=== PATIENT | male | born 1965 | race Caucasian/White ===

== ENCOUNTER 2024-11-16 16:58 | Inpatient (IN) | payer MEDICAID ==
[~2024-11-16] VITALS: Ht 170.2 cm; Wt 52.3 kg
[~2024-11-16 16:58] MED LIST: ASPI-1397 PO; FLO0.4C PO; HYDR-3968 PO; OMEP20CA16 PO; SENN-29 PO; TRAM50TA2 PO
[2024-11-16] MEDS ORDERED: ONDA-103 PO (18:06)
[2024-11-16 18:10] LABS: BASOPHILS % (AUTO) 0.2 % (0-1); EOSINOPHILS % (AUTO) 0.1 % (0-6); HEMOGLOBIN 9.7 g/dl (14.0-17.9); MONOCYTES # (AUTO) 0.4 X10'3 (0-0.9); WHITE BLOOD COUNT 7.7 X10'3 (4.5-11.0)
[2024-11-16 18:12] LABS: HEMATOCRIT 29.5 % (42.0-52.0); LYMPHOCYTES # (AUTO) 0.2 X10'3 (1.1-4.8); MEAN CORPUSCULAR HEMOGLOBIN 27.3 PG (27.0-31.0); MEAN CORPUSCULAR HGB CONC 32.8 g/dL (33.0-36.5); MEAN CORPUSCULAR VOLUME 83.2 FL (78-98); MEAN PLATELET VOLUME 7.5 FL (7.4-10.4); MONOCYTES % (AUTO) 4.8 % (2-12); NEUTROPHILS # (AUTO) 7.1 X10'3 (1.8-7.7); NEUTROPHILS % (AUTO) 91.9 % (42-75); PLATELET COUNT 705 X10'3 (140-440); RED BLOOD COUNT 3.54 X10'6 (4.70-6.10)
[2024-11-16 18:23] LABS: ALANINE AMINOTRANSFERASE 33 U/L (12-78); ALBUMIN 3.2 G/DL (3.4-5.0); ALBUMIN/GLOBULIN RATIO 0.7 (1.1-1.5); ALKALINE PHOSPHATASE 181 IU/L (46-116); ANION GAP 11 (8-16); ASPARTATE AMINO TRANSFERASE 36 U/L (10-37); BILIRUBIN,TOTAL 0.5 MG/DL (0.1-1.0); BLOOD UREA NITROGEN 61 MG/DL (7-18); BUN/CREATININE RATIO 23.1 (10.0-20.0); CALCIUM 9.7 MG/DL (8.5-10.1); CHLORIDE 86 MMOL/L (99-107); CREATININE 2.64 MG/DL (0.60-1.10); GLUCOSE 128 MG/DL (70-104); TOTAL CARBON DIOXIDE 21.9 MMOL/L (24-32); TOTAL PROTEIN 8.1 G/DL (6.4-8.2); eCRCL 22 ML/MIN; eGFR 25 ML/MIN
[2024-11-16 18:26] LABS: SODIUM 119 MMOL/L (135-145)
[2024-11-16 18:27] LABS: POTASSIUM 6.4 MMOL/L (3.5-5.1)
[2024-11-16] MEDS: normal saline 1000ml 1,000 ML IV ONE ×2 (19:03→23:22)
[2024-11-16] MEDS: normal saline 1000ML IV soln IVB ONE (19:04)
[2024-11-16] MEDS ORDERED: calcium gluconate inj. 2 GM in normal saline 100ml IV soln 100 ML IV ONE (19:55)
[2024-11-16 20:15] LABS: PHOSPHORUS 4.9 MG/DL (2.3-4.5)
[2024-11-16] MEDS: CALCIUM GLUC 1gm/50ml NACL,iso 50 ML IV ONE ×2 (22:00→22:15)
[2024-11-16] MEDS: dextrose 50%-water 50ml dispensing syringe IV ONE (22:32)
[2024-11-16] MEDS: insulin regular, human 10 units/0.1 ml syringe SQ ONE (22:42)
[2024-11-16] MEDS: sodium bicarbonate (8.4%) 1 mEq/ml syringe IV ONE (22:45)
[2024-11-16] MEDS ORDERED: HYDROcodone/acetaminophen 5mg/325mg tablet PO PRN (22:55)
[2024-11-16] MEDS ORDERED: potassium Cl 40MEQ/1/2NS 520ml 520 ML IV PRN (22:55)
[2024-11-16] MEDS ORDERED: acetaminophen 325mg tablet PO PRN (22:55)
[2024-11-16] MEDS ORDERED: magnesium sulf-water 4G/100mL 100 ML IV PRN (22:55)
[2024-11-16] MEDS ORDERED: magnesium hydroxide 30ml (MOM) UD suspension PO PRN (22:55)
[2024-11-16] MEDS ORDERED: mag hydrox/Alum hydrox/simeth 30ml oral suspension PO PRN (22:55)
[2024-11-16] MEDS ORDERED: magnesium Cl slow-release 64mg tablet PO PRN (22:55)
[2024-11-16] MEDS ORDERED: potassium Cl 20 mEq SR tablet PO PRN ×2 (22:55)
[2024-11-16] MEDS ORDERED: ondansetron/PF 4mg/2ml inj IV PRN (22:55)
[2024-11-16] MEDS ORDERED: magnesium sulf-water 2g/50mL 50 ML IV PRN (22:55)
[2024-11-16] MEDS ORDERED: morphine 2 MG/ML inj. syringe IV PRN ×2 (22:55)
[2024-11-16 23:09] VITALS: PULSE 112; RESP 18
[2024-11-16] MEDS: albuterol 2.5 MG/3 ML nebule NEB ONE (23:09)
[2024-11-16 23:10] LABS: BILIRUBIN,URINE SMALL (Neg); CLARITY,URINE CLOUDY (Clear); COLOR,URINE AMBER (Yellow); GLUCOSE, URINE NEGATIVE (Neg); KETONES,URINE TRACE mg/dl (Neg); LEUKOCYTE ESTERASE ,URINE MODERATE (Neg); OCCULT BLOOD,URINE LARGE (Neg); PROTEIN,URINE 100 mg/dl (Neg); UROBILINOGEN,URINE 0.2 E.U/dL (0.2-1.0)
[2024-11-16] MEDS: sodium polystyrene sulfonate 15gm/60ml oral suspension PO ONE (23:10)
[2024-11-16 23:24] VITALS: PULSE 111; RESP 14
[2024-11-16 23:33] LABS: OSMOLALITY UA 507.5 MOSM/K (50-1400)
[2024-11-16 23:36] LABS: NITRITES, URINE NEGATIVE (Neg)
[2024-11-16 23:37] LABS: RBC,URINE TNTC /HPF (0-2); SQUAMOUS EPITHELIAL CELL,UR FEW /LPF (FEW); UA COLLECTION TYPE URINAL
[2024-11-16 23:38] LABS: BACTERIA,URINE 2+ /HPF (Neg)
[2024-11-16 23:41] LABS: ALBUMIN 2.8 G/DL (3.4-5.0); ANION GAP 7 (8-16); BLOOD UREA NITROGEN 55 MG/DL (7-18); BUN/CREATININE RATIO 22.7 (10.0-20.0); CHLORIDE 90 MMOL/L (99-107); CREATININE 2.42 MG/DL (0.60-1.10); GLUCOSE 112 MG/DL (70-104); SODIUM 121 MMOL/L (135-145); TOTAL CARBON DIOXIDE 24.5 MMOL/L (24-32); eCRCL 24 ML/MIN; eGFR 27 ML/MIN
[2024-11-16 23:45] LABS: APTT 31 SECONDS (22-32); INR 1.1 INR; PROTHROMBIN TIME 11.4 SECONDS (9.0-12.0)
[2024-11-16 23:57] LABS: CALCIUM 8.8 MG/DL (8.5-10.1)
[2024-11-17] MEDS: heparin, porcine 5000 units/ml vial SQ SCH (00:49)
[2024-11-17] MEDS: normal saline 1000ml 1,000 ML IV SCH (00:51)
[2024-11-17] MEDS: sodium polystyrene sulfonate 15gm/60ml oral suspension PO ONE (00:55)
[2024-11-17] MEDS: CefTRIAXone/D5W-Rocephin 1gm 50 ML IV ONE (03:50)
[2024-11-17] MEDS: HYDROcodone/acetaminophen 10/325mg tab PO PRN (04:16)
[2024-11-17 07:45] LABS: BASOPHILS % (AUTO) 0.5 % (0-1); EOSINOPHILS % (AUTO) 0.3 % (0-6); HEMATOCRIT 25.7 % (42.0-52.0); HEMOGLOBIN 8.6 g/dl (14.0-17.9); LYMPHOCYTES # (AUTO) 0.4 X10'3 (1.1-4.8); LYMPHOCYTES % (AUTO) 7.4 % (21-51); MEAN CORPUSCULAR HEMOGLOBIN 27.9 PG (27.0-31.0); MEAN CORPUSCULAR HGB CONC 33.4 g/dL (33.0-36.5); MEAN CORPUSCULAR VOLUME 83.5 FL (78-98); MEAN PLATELET VOLUME 7.9 FL (7.4-10.4); MONOCYTES # (AUTO) 0.7 X10'3 (0-0.9); MONOCYTES % (AUTO) 11.5 % (2-12); NEUTROPHILS # (AUTO) 4.9 X10'3 (1.8-7.7); NEUTROPHILS % (AUTO) 80.3 % (42-75); PLATELET COUNT 505 X10'3 (140-440); RED BLOOD COUNT 3.07 X10'6 (4.70-6.10); WHITE BLOOD COUNT 6.1 X10'3 (4.5-11.0)
[2024-11-17] MEDS: K and/or MAG REPLACEMENT MC SCH (08:00)
[2024-11-17 08:10] LABS: ALANINE AMINOTRANSFERASE 28 U/L (12-78); ALBUMIN 2.5 G/DL (3.4-5.0); ALBUMIN/GLOBULIN RATIO 0.6 (1.1-1.5); ALKALINE PHOSPHATASE 151 IU/L (46-116); ANION GAP 12 (8-16); ASPARTATE AMINO TRANSFERASE 34 U/L (10-37); BILIRUBIN,TOTAL 0.7 MG/DL (0.1-1.0); BLOOD UREA NITROGEN 45 MG/DL (7-18); BUN/CREATININE RATIO 20.7 (10.0-20.0); CALCIUM 8.5 MG/DL (8.5-10.1); CHLORIDE 91 MMOL/L (99-107); CREATININE 2.17 MG/DL (0.60-1.10); GLUCOSE 79 MG/DL (70-104); POTASSIUM 4.3 MMOL/L (3.5-5.1); SODIUM 123 MMOL/L (135-145); TOTAL CARBON DIOXIDE 19.9 MMOL/L (24-32); TOTAL PROTEIN 6.8 G/DL (6.4-8.2); eCRCL 27 ML/MIN; eGFR 31 ML/MIN
[2024-11-17] MEDS: lactose-reduced food (Ensure Enlive) - 237ml bottle PO SCH (08:45)
[2024-11-17 12:30] VITALS: RESP 15; O2SAT 95
[2024-11-17 13:15] VITALS: BP_SYST 92; BP_SYST 97; BP_DIAS 52; PULSE 108; RESP 14; TEMP 97.5; O2SAT 95
[2024-11-17] MEDS: morphine 2 MG/ML inj. syringe IV STA (16:07)
[2024-11-17] MEDS: normal saline 500ml IV soln 500 ML IV ONE ×2 (17:53→18:03)
[2024-11-17 18:01] VITALS: BP 85/49; PULSE 94; RESP 14; O2SAT 98
[2024-11-17 18:40] VITALS: BP 90/52; PULSE 98; RESP 16; TEMP 97.8; O2SAT 98
[2024-11-17 20:00] VITALS: RESP 18; O2SAT 92
[2024-11-17 22:00] VITALS: BP 88/58; PULSE 103; RESP 18; TEMP 98.4; O2SAT 98
[2024-11-18] VITALS (11 sets, daily range): BP systolic 70–93; BP diastolic 40–62; PULSE 90–101; RESP 12–20; TEMP 97.3–98.1; O2SAT 94–99
[2024-11-18 07:25] LABS: BASOPHILS % (AUTO) 0.7 % (0-1); EOSINOPHILS % (AUTO) 0.8 % (0-6); HEMATOCRIT 23.8 % (42.0-52.0); LYMPHOCYTES # (AUTO) 0.5 X10'3 (1.1-4.8); LYMPHOCYTES % (AUTO) 9.2 % (21-51); MEAN CORPUSCULAR HEMOGLOBIN 28.4 PG (27.0-31.0); MEAN CORPUSCULAR HGB CONC 33.6 g/dL (33.0-36.5); MEAN CORPUSCULAR VOLUME 84.5 FL (78-98); MEAN PLATELET VOLUME 8.1 FL (7.4-10.4); MONOCYTES # (AUTO) 0.5 X10'3 (0-0.9); NEUTROPHILS # (AUTO) 3.9 X10'3 (1.8-7.7); NEUTROPHILS % (AUTO) 78.3 % (42-75); PLATELET COUNT 468 X10'3 (140-440); RED BLOOD COUNT 2.82 X10'6 (4.70-6.10); RED CELL DISTRIBUTION WIDTH 16.9 % (11.5-14.5)
[2024-11-18 08:04] LABS: ALANINE AMINOTRANSFERASE 25 U/L (12-78); ALBUMIN 2.3 G/DL (3.4-5.0); ALBUMIN/GLOBULIN RATIO 0.6 (1.1-1.5); ALKALINE PHOSPHATASE 141 IU/L (46-116); ANION GAP 10 (8-16); ASPARTATE AMINO TRANSFERASE 31 U/L (10-37); BILIRUBIN,TOTAL 0.4 MG/DL (0.1-1.0); BLOOD UREA NITROGEN 32 MG/DL (7-18); BUN/CREATININE RATIO 20.6 (10.0-20.0); CHLORIDE 97 MMOL/L (99-107); CREATININE 1.55 MG/DL (0.60-1.10); GLUCOSE 84 MG/DL (70-104); POTASSIUM 4.3 MMOL/L (3.5-5.1); SODIUM 128 MMOL/L (135-145); TOTAL CARBON DIOXIDE 20.9 MMOL/L (24-32); TOTAL PROTEIN 5.9 G/DL (6.4-8.2); eCRCL 37 ML/MIN; eGFR 46 ML/MIN
[2024-11-18] MEDS: CefTRIAXone/D5W-Rocephin 1gm 50 ML IV SCH (08:29)
[2024-11-18] MEDS: DOPamine 400mg/D5W 250ml 250 ML IV SCH (14:37)
[2024-11-18] MEDS: normal saline 1000ml 1,000 ML IV ONE (20:08)
[2024-11-18] MEDS ORDERED: acetaminophen 325mg tablet PO PRN (20:35)
[2024-11-18] MEDS: nicotine 14mg patch - 24hr TD ONE (23:40)
[2024-11-19] VITALS (11 sets, daily range): BP systolic 77–97; BP diastolic 40–64; PULSE 66–104; RESP 17–24; TEMP 97–98; O2SAT 96–98
[2024-11-19 08:14] LABS: BASOPHILS % (AUTO) 0.3 % (0-1); EOSINOPHILS # (AUTO) 0.1 X10'3 (0-0.9); EOSINOPHILS % (AUTO) 1.7 % (0-6); HEMATOCRIT 23.1 % (42.0-52.0); HEMOGLOBIN 7.7 g/dl (14.0-17.9); LYMPHOCYTES # (AUTO) 0.5 X10'3 (1.1-4.8); LYMPHOCYTES % (AUTO) 7.4 % (21-51); MEAN CORPUSCULAR HEMOGLOBIN 28.5 PG (27.0-31.0); MEAN CORPUSCULAR HGB CONC 33.4 g/dL (33.0-36.5); MEAN CORPUSCULAR VOLUME 85.3 FL (78-98); MEAN PLATELET VOLUME 7.5 FL (7.4-10.4); MONOCYTES # (AUTO) 0.6 X10'3 (0-0.9); MONOCYTES % (AUTO) 10.5 % (2-12); NEUTROPHILS # (AUTO) 4.9 X10'3 (1.8-7.7); NEUTROPHILS % (AUTO) 80.1 % (42-75); PLATELET COUNT 467 X10'3 (140-440); WHITE BLOOD COUNT 6.1 X10'3 (4.5-11.0)
[2024-11-19 08:54] LABS: ALANINE AMINOTRANSFERASE 24 U/L (12-78); ALBUMIN/GLOBULIN RATIO 0.6 (1.1-1.5); ALKALINE PHOSPHATASE 136 IU/L (46-116); ANION GAP 6 (8-16); ASPARTATE AMINO TRANSFERASE 23 U/L (10-37); BILIRUBIN,TOTAL 0.2 MG/DL (0.1-1.0); BLOOD UREA NITROGEN 19 MG/DL (7-18); BUN/CREATININE RATIO 21.1 (10.0-20.0); CALCIUM 7.7 MG/DL (8.5-10.1); CHLORIDE 102 MMOL/L (99-107); GLUCOSE 72 MG/DL (70-104); POTASSIUM 4.6 MMOL/L (3.5-5.1); SODIUM 130 MMOL/L (135-145); TOTAL CARBON DIOXIDE 22.2 MMOL/L (24-32); TOTAL PROTEIN 5.3 G/DL (6.4-8.2); eCRCL 65 ML/MIN; eGFR 86 ML/MIN
[2024-11-20] VITALS (8 sets, daily range): BP systolic 74–99; BP diastolic 44–62; PULSE 64–102; RESP 14–22; TEMP 97–98; O2SAT 93–98
[2024-11-20 06:16] LABS: BASOPHILS % (AUTO) 0.3 % (0-1); EOSINOPHILS # (AUTO) 0.1 X10'3 (0-0.9); EOSINOPHILS % (AUTO) 1.9 % (0-6); HEMATOCRIT 22.8 % (42.0-52.0); HEMOGLOBIN 7.7 g/dl (14.0-17.9); LYMPHOCYTES # (AUTO) 0.4 X10'3 (1.1-4.8); LYMPHOCYTES % (AUTO) 6.8 % (21-51); MEAN CORPUSCULAR HEMOGLOBIN 28.4 PG (27.0-31.0); MEAN CORPUSCULAR HGB CONC 33.7 g/dL (33.0-36.5); MEAN CORPUSCULAR VOLUME 84.3 FL (78-98); MEAN PLATELET VOLUME 6.8 FL (7.4-10.4); MONOCYTES # (AUTO) 0.7 X10'3 (0-0.9); MONOCYTES % (AUTO) 11.1 % (2-12); NEUTROPHILS # (AUTO) 4.8 X10'3 (1.8-7.7); NEUTROPHILS % (AUTO) 79.9 % (42-75); PLATELET COUNT 407 X10'3 (140-440); RED CELL DISTRIBUTION WIDTH 17.3 % (11.5-14.5)
[2024-11-20 06:34] LABS: ALANINE AMINOTRANSFERASE 19 U/L (12-78); ALBUMIN 1.6 G/DL (3.4-5.0); ALBUMIN/GLOBULIN RATIO 0.6 (1.1-1.5); ALKALINE PHOSPHATASE 123 IU/L (46-116); ANION GAP 6 (8-16); ASPARTATE AMINO TRANSFERASE 19 U/L (10-37); BILIRUBIN,TOTAL 0.2 MG/DL (0.1-1.0); BLOOD UREA NITROGEN 12 MG/DL (7-18); CALCIUM 7.2 MG/DL (8.5-10.1); CHLORIDE 104 MMOL/L (99-107); GLUCOSE 71 MG/DL (70-104); POTASSIUM 4.4 MMOL/L (3.5-5.1); SODIUM 130 MMOL/L (135-145); TOTAL PROTEIN 4.5 G/DL (6.4-8.2); eCRCL 73 ML/MIN; eGFR > 90 ML/MIN
[2024-11-20] MEDS: PERFLUTREN PROTEIN-A MICROSPHR (Optison) 0.22 MG/ML 3ML VIAL IV ONE (08:18)
[2024-11-20] MEDS: midodrine tablet 2.5 MG TABLET PO SCH (08:25)
[2024-11-21 02:00] VITALS: BP 96/54; PULSE 97; RESP 20; TEMP 97.6; O2SAT 97
[2024-11-21 06:00] VITALS: BP 96/50; PULSE 97; RESP 15; TEMP 98; O2SAT 96
[2024-11-21 06:31] LABS: BASOPHILS % (AUTO) 0.4 % (0-1); EOSINOPHILS # (AUTO) 0.1 X10'3 (0-0.9); EOSINOPHILS % (AUTO) 1.9 % (0-6); HEMATOCRIT 23.3 % (42.0-52.0); HEMOGLOBIN 7.6 g/dl (14.0-17.9); LYMPHOCYTES # (AUTO) 0.4 X10'3 (1.1-4.8); LYMPHOCYTES % (AUTO) 5.3 % (21-51); MEAN CORPUSCULAR HEMOGLOBIN 27.8 PG (27.0-31.0); MEAN CORPUSCULAR HGB CONC 32.5 g/dL (33.0-36.5); MEAN CORPUSCULAR VOLUME 85.4 FL (78-98); MEAN PLATELET VOLUME 7.4 FL (7.4-10.4); MONOCYTES # (AUTO) 0.7 X10'3 (0-0.9); NEUTROPHILS % (AUTO) 82.4 % (42-75); PLATELET COUNT 397 X10'3 (140-440); RED BLOOD COUNT 2.72 X10'6 (4.70-6.10); RED CELL DISTRIBUTION WIDTH 17.1 % (11.5-14.5); WHITE BLOOD COUNT 7.3 X10'3 (4.5-11.0)
[2024-11-21 06:41] LABS: ALANINE AMINOTRANSFERASE 18 U/L (12-78); ALBUMIN 1.6 G/DL (3.4-5.0); ALBUMIN/GLOBULIN RATIO 0.5 (1.1-1.5); ALKALINE PHOSPHATASE 153 IU/L (46-116); ANION GAP 10 (8-16); ASPARTATE AMINO TRANSFERASE 27 U/L (10-37); BILIRUBIN,TOTAL 0.3 MG/DL (0.1-1.0); BLOOD UREA NITROGEN 8 MG/DL (7-18); BUN/CREATININE RATIO 10.8 (10.0-20.0); CALCIUM 7.2 MG/DL (8.5-10.1); CHLORIDE 103 MMOL/L (99-107); CREATININE 0.74 MG/DL (0.60-1.10); SODIUM 130 MMOL/L (135-145); TOTAL CARBON DIOXIDE 17.5 MMOL/L (24-32); TOTAL PROTEIN 4.7 G/DL (6.4-8.2); eCRCL 78 ML/MIN; eGFR > 90 ML/MIN
[2024-11-21 06:42] LABS: GLUCOSE 48 MG/DL (70-104)
[2024-11-21 08:00] VITALS: RESP 20; O2SAT 97
[2024-11-21] MEDS ORDERED: glucagon, human recombinant 1mg kit SUBCUT PRN (08:05)
[2024-11-21] MEDS ORDERED: DEXTROSE 15 GM of carb/4 tabs (each vial/BOTTLE has 4 tablets) PO PRN ×2 (08:05)
[2024-11-21] MEDS ORDERED: dextrose 50%-water 50ml dispensing syringe IV PRN ×2 (08:05)
[2024-11-21] MEDS: midodrine tablet 2.5 MG TABLET PO SCH (08:12)
[2024-11-21] MEDS ORDERED: MIDO2.5T PO (09:48)
[2024-11-21] MEDS ORDERED: HYDR-3972 PO (09:48)
== END 2024-11-21 12:36 | disposition home or self-care (01) | DRG 426 ==
LOC: ER 16:59 → ED HOLD 20:38 → ORTHO 4S 11-17 12:35 → PCU 3S 11-18 13:37
PROVIDERS: ADMIT Internal Medicine Pulmonary Disease; ATTEND Internal Medicine
PROC: 05HC33Z Insertion of Infusion Device into Left Basilic Vein, Percutaneous Approach (ICD-10-PCS; principal; 2024-11-19)
DX: E87.1 Hypo-osmolality and hyponatremia (principal); N17.0 Acute kidney failure with tubular necrosis; E43 Unspecified severe protein-calorie malnutrition; I95.9 Hypotension, unspecified; E86.0 Dehydration; R62.7 Adult failure to thrive; E87.5 Hyperkalemia; I25.10 Atherosclerotic heart disease of native coronary artery without angina pectoris; K21.9 Gastro-esophageal reflux disease without esophagitis; J44.89 Other specified chronic obstructive pulmonary disease; N35.919 Unspecified urethral stricture, male, unspecified site; Z79.82 Long term (current) use of aspirin; Z79.899 Other long term (current) drug therapy; Z85.028 Personal history of other malignant neoplasm of stomach; Z85.038 Personal history of other malignant neoplasm of large intestine; Z85.46 Personal history of malignant neoplasm of prostate; Z85.51 Personal history of malignant neoplasm of bladder; Z68.1 Body mass index [BMI] 19.9 or less, adult
CPT/HCPCS: 36410; 36415; 76937; 80048; 80053; 81001; 82948; 83930; 83935; 84100; 84300; 85025; 85610; 85730; 87088; 93005; 93306; 94640; 94760; 99285; A4615; A4620; A5200; A6258; C1751; C1758; G0378; J0610; J0696; J1265; J1644; J1815; J2270; J3490; J7030; J7040